=== PATIENT | male | born 1940 | race Caucasian/White ===

== ENCOUNTER 2019-05-22 21:09 | Observation (INO) ==
[2019-05-22 21:40] LABS: Hematocrit 40.3 % (37.5-50.1); Hemoglobin 13.7 g/dL (12.9-16.9); Mean Corpuscular Hemoglobin 33.7 pg (28.0-33.3); Mean Platelet Volume 10.7 fL (9.4-12.4); Platelet Count 138 K/mcL (140-400); Red Blood Count 4.07 M/mcL (4.19-5.50); Red Cell Distribution Width 15.9 % (11.5-14.5); White Blood Count 3.7 K/mcL (4.3-11.1)
[2019-05-22 21:49] LABS: Prothrombin Time 11.6 Seconds (9.4-12.1)
[2019-05-22 21:52] LABS: Activated Partial Thrombo Time 31.7 Seconds (26.0-36.0)
[2019-05-22 22:02] LABS: BUN/Creatinine Ratio 13 (6-26); Blood Urea Nitrogen 15 mg/dL (8-23); Calcium 8.8 mg/dL (8.6-10.3); Carbon Dioxide 24 mEq/L (23-29); Chloride 107 mEq/L (98-107); Glucose 87 mg/dL (70-105); Osmolality,Calculated 274 (280-300); Sodium 132 mEq/L (136-145); Troponin I 0.06 ng/mL (< 0.04); eGFR For African Americans > 60 (> 60); eGFR For Non-African Americans > 60 (> 60)
[2019-05-22] MEDS ORDERED: Aspirin 325 MG TABLET PO ONE (22:09)
[2019-05-22 22:11] LABS: Bilirubin,Urine Negative (Negative); Blood,Urine Negative (Negative); Clarity,Urine Clear (Clear); Color,Urine Yellow (Yellow); Glucose,Urine (UA) Normal (Normal); Ketones,Urine Negative (Negative); Leukocyte Esterase,Urine Negative (Negative); Nitrite,Urine Negative (Negative); PH,Urine 6.5 pH Units (5.0-8.0); Protein,Urine Negative (Neg-Trace); Specific Gravity,Urine 1.009 (1.010-1.025); Urobilinogen,Urine Normal (Normal)
[2019-05-22] MEDS ORDERED: Acetaminophen 325 MG TABLET PO PRN (23:31)
[2019-05-23] MEDS ORDERED: Naloxone 0.4 MG/ML INJ IVP PRN (00:18)
[2019-05-23] MEDS ORDERED: Aspirin Enteric Coated 325 MG Tablet PO ONE (00:24)
[2019-05-23] MEDS: Cabozantinib S-Malate [Cabometyx] 40 MG PO SCH ×2 (00:28→08:34)
[2019-05-23] MEDS: Famotidine 20 MG TABLET PO SCH ×3 (00:29→16:21)
[2019-05-23] MEDS: BuPROPion SR (12 HR) 150 MG TABLET PO SCH ×3 (00:31→21:08)
[2019-05-23 01:18] LABS: Prothrombin Time 11.6 Seconds (9.4-12.1)
[2019-05-23 01:23] LABS: Basophils % 0.5 %; Eosinophils # 0.4 K/mcL (0.0-0.6); Eosinophils % 11.4 %; Hematocrit 39.2 % (37.5-50.1); Hemoglobin 13.4 g/dL (12.9-16.9); Immature Granulocytes % 0.3 % (0-4); Lymphocytes # 1.2 K/mcL (0.6-4.6); Lymphocytes % 31.9 %; Mean Corpuscular HGB Conc 34.2 g/dL (31.6-35.5); Mean Corpuscular Hemoglobin 33.5 pg (28.0-33.3); Mean Platelet Volume 11.3 fL (9.4-12.4); Monocytes # 0.3 K/mcL (0.0-1.3); Monocytes % 7.3 %; Neutrophils # 1.9 K/mcL (1.6-8.9); Platelet Count 148 K/mcL (140-400); Red Cell Distribution Width 15.8 % (11.5-14.5); Segmented Neutrophils % 48.6 %; White Blood Count 3.9 K/mcL (4.3-11.1)
[2019-05-23 01:30] LABS: Alanine Aminotransferase 29 Units/L (7-52); Albumin 3.6 g/dL (3.5-5.7); Albumin/Globulin Ratio 1.7 (1.1-2.2); Alkaline Phosphatase 68 Units/L (34-104); Aspartate Amino Transferase 34 Units/L (13-39); BUN/Creatinine Ratio 14 (6-26); Bilirubin,Total 0.5 mg/dL (0.3-1.0); Blood Urea Nitrogen 14 mg/dL (8-23); Calcium 8.8 mg/dL (8.6-10.3); Carbon Dioxide 22 mEq/L (23-29); Chloride 105 mEq/L (98-107); Chol/HDL Ratio 3.2 (0-4.9); Cholesterol 121 mg/dL (< 200); Globulin 2.1 g/dL (2.4-3.5); Glucose 95 mg/dL (70-105); HDL Cholesterol 38 mg/dL (40-59); LDL Cholesterol,Calculated 66 mg/dL (0-99); Magnesium 1.5 mg/dL (1.6-2.6); Osmolality,Calculated 280 (280-300); Phosphorous 2.5 mg/dL (2.7-4.5); Potassium 3.9 mEq/L (3.5-5.1); Sodium 135 mEq/L (136-145); Total Protein 5.7 g/dL (6.4-8.9); Triglycerides 87 mg/dL (< 150); eGFR For African Americans > 60 (> 60); eGFR For Non-African Americans > 60 (> 60)
[2019-05-23 01:44] LABS: Thyroid Stimulating Hormone 10.609 mcIU/mL (0.340-5.600)
[2019-05-23] MEDS ORDERED: *HR* Heparin 5,000 UNIT/ML VIAL IVP PRN ×2 (03:05)
[2019-05-23] MEDS ORDERED: Heparin 25,000 UNIT/250 ML D5W 25,000 UNIT/250 ML IV.SOLN IVC SCH (03:15)
[2019-05-23] MEDS ORDERED: *HR* Heparin 5,000 UNIT/ML VIAL SQ SCH (06:00)
[2019-05-23 07:58] LABS: Estimated Average Glucose 140 mg/dl
[2019-05-23] MEDS: Magnesium Oxide 400 MG TABLET PO SCH ×2 (08:36→21:08)
[2019-05-23] MEDS ORDERED: NON-FORMULARY MEDICATION 1 EACH EACH (Sildenafil Citrate [Viagra] 50 MG) PO SCH (09:00)
[2019-05-23] MEDS: amLODIPine 5 MG TABLET PO SCH (10:20)
[2019-05-23] MEDS: *HR* Heparin 5,000 UNIT/ML VIAL SQ SCH (16:23)
[2019-05-24 01:12] LABS: Hematocrit 37.1 % (37.5-50.1); Hemoglobin 12.7 g/dL (12.9-16.9); Mean Corpuscular HGB Conc 34.2 g/dL (31.6-35.5); Mean Corpuscular Volume 99.2 fL (83.0-100.0); Mean Platelet Volume 10.6 fL (9.4-12.4); Platelet Count 143 K/mcL (140-400); Red Blood Count 3.74 M/mcL (4.19-5.50); Red Cell Distribution Width 15.9 % (11.5-14.5); White Blood Count 4.6 K/mcL (4.3-11.1)
[2019-05-24 01:31] LABS: BUN/Creatinine Ratio 15 (6-26); Blood Urea Nitrogen 19 mg/dL (8-23); Calcium 8.2 mg/dL (8.6-10.3); Carbon Dioxide 21 mEq/L (23-29); Chloride 103 mEq/L (98-107); Glucose 97 mg/dL (70-105); Osmolality,Calculated 278 (280-300); Potassium 4.1 mEq/L (3.5-5.1); Sodium 133 mEq/L (136-145); eGFR For African Americans > 60 (> 60); eGFR For Non-African Americans 55 (> 60)
[2019-05-24] MEDS: Famotidine 20 MG TABLET PO SCH (05:04)
[2019-05-24] MEDS: *HR* Heparin 5,000 UNIT/ML VIAL SQ SCH (05:29)
[2019-05-24] MEDS ORDERED: Regadenoson 0.4 MG/5 ML SYRINGE IVP ONE (06:18)
[2019-05-24] MEDS ORDERED: Aspirin Enteric Coated 81 MG Tablet PO SCH (09:00)
[2019-05-24] MEDS ORDERED: [UNRECOGNIZED DRUG - OTHER] PO SCH (09:00)
[2019-05-24] MEDS ORDERED: Ascorbic Acid 500 MG TABLET PO SCH (09:00)
[2019-05-24] MEDS ORDERED: B COMPLEX WITH VITAMIN C PO SCH (09:00)
[2019-05-24] MEDS: Cabozantinib S-Malate [Cabometyx] 40 MG PO SCH (09:39)
[2019-05-24] MEDS: Magnesium Oxide 400 MG TABLET PO SCH (09:40)
[2019-05-24] MEDS: BuPROPion SR (12 HR) 150 MG TABLET PO SCH (09:40)
[2019-05-24] MEDS: amLODIPine 5 MG TABLET PO SCH (09:41)
[2019-05-24 15:23] VITALS: BP 143/73
== END 2019-05-24 15:56 | disposition home or self-care (01) ==
LOC: 3BNU 21:09 → EMEROOARM 21:09 → 3BNU 23:35
PROVIDERS: ADMIT Internal Medicine; ATTEND Internal Medicine

== ENCOUNTER 2020-03-06 14:14 | Inpatient (IN) ==
[2020-03-06 15:25] LABS: Basophils # 0.1 K/mcL (0.0-0.2); Basophils % 0.4 %; Hematocrit 38.6 % (37.5-50.1); Hemoglobin 12.3 g/dL (12.9-16.9); Immature Granulocytes % 1.6 % (0-4); Lymphocytes # 0.8 K/mcL (0.6-4.6); Lymphocytes % 6.1 %; Mean Corpuscular HGB Conc 31.9 g/dL (31.6-35.5); Mean Corpuscular Hemoglobin 34.6 pg (28.0-33.3); Mean Corpuscular Volume 108.4 fL (83.0-100.0); Mean Platelet Volume 11.9 fL (9.4-12.4); Monocytes # 2.3 K/mcL (0.0-1.3); Platelet Count 217 K/mcL (140-400); Red Blood Count 3.56 M/mcL (4.19-5.50); Red Cell Distribution Width 15.3 % (11.5-14.5); Segmented Neutrophils % 74.9 %; White Blood Count 13.4 K/mcL (4.3-11.1)
[2020-03-06 15:54] LABS: BUN/Creatinine Ratio 21 (6-26); Blood Urea Nitrogen 29 mg/dL (8-23); Calcium 8.5 mg/dL (8.6-10.3); Carbon Dioxide 23 mEq/L (23-29); Chloride 101 mEq/L (98-107); Glucose 120 mg/dL (70-105); Osmolality,Calculated 281 (280-300); Potassium 4.7 mEq/L (3.5-5.1); Sodium 132 mEq/L (136-145); Troponin I 0.04 ng/mL (< 0.04); eGFR For African Americans > 60 (> 60); eGFR For Non-African Americans 50 (> 60)
[2020-03-06] MEDS ORDERED: 0.9 % Sodium Chloride 500 ML IVC ONE (16:18)
[2020-03-06] MEDS ORDERED: Isovue-370 500 ML BOTTLE IVP ONE (16:19)
[2020-03-06] MEDS ORDERED: Furosemide 40 MG/4 ML VIAL IVP ONE (20:52)
[2020-03-06] MEDS ORDERED: Naloxone 0.4 MG/ML INJ IVP PRN (21:33)
[2020-03-06] MEDS ORDERED: *HR* Enoxaparin 80 MG/0.8 ML SYRINGE SQ ONE (23:34)
[2020-03-06] MEDS ORDERED: *HR* Promethazine 25 MG/ML VIAL IVP PRN (23:38)
[2020-03-07] MEDS: BuPROPion SR (12 HR) 150 MG TABLET PO SCH ×3 (00:06→22:04)
[2020-03-07] MEDS: Acetaminophen 325 MG TABLET PO PRN ×3 (00:10→16:59)
[2020-03-07 00:23] LABS: Bilirubin,Urine Negative (Negative); Blood,Urine Negative (Negative); Clarity,Urine Clear (Clear); Color,Urine Light-Yellow (Yellow); Glucose,Urine (UA) Normal (Normal); Ketones,Urine Negative (Negative); Leukocyte Esterase,Urine Negative (Negative); Nitrite,Urine Negative (Negative); PH,Urine 6.5 pH Units (5.0-8.0); Protein,Urine 30 mg/dL (Neg-Trace); RBC,Urine 0-3 per hpf (0-3); Specific Gravity,Urine 1.018 (1.010-1.025); Urobilinogen,Urine Normal (Normal); WBC,Urine 0-3 per hpf (0-3)
[2020-03-07 00:33] LABS: Adenovirus Not Detected (Not Detect); Bordetella Pertussis Not Detected (Not Detect); Chlamydophila pneumoniae Not Detected (Not Detect); Coronavirus 229E Not Detected (Not Detect); Coronavirus HKU1 Not Detected (Not Detect); Coronavirus NL63 Not Detected (Not Detect); Coronavirus OC43 Not Detected (Not Detect); Human Metapneumovirus Not Detected (Not Detect); Human Rhinovirus/Enterovirus Not Detected (Not Detect); Influenza A Subtype 2009 H1 Not Detected (Not Detect); Influenza B Not Detected (Not Detect); Mycoplasma pneumoniae Not Detected (Not Detect); Parainfluenza Virus 1 Not Detected (Not Detect); Parainfluenza Virus 2 Not Detected (Not Detect); Parainfluenza Virus 3 Not Detected (Not Detect); Parainfluenza Virus 4 Not Detected (Not Detect); Respiratory Syncytial Virus Not Detected (Not Detect)
[2020-03-07 00:35] LABS: SARS-CoV-2 Not Detected (Not Detect)
[2020-03-07 02:34] LABS: VBG HCO3 22 mEq/L (21-27); VBG PCO2 28 mmHg (41-51); VBG PO2 150 mmHg (25-50)
[2020-03-07 02:53] LABS: Alanine Aminotransferase 37 Units/L (7-52); Albumin 2.8 g/dL (3.5-5.7); Albumin/Globulin Ratio 1.2 (1.1-2.2); Alkaline Phosphatase 201 Units/L (34-104); Aspartate Amino Transferase 116 Units/L (13-39); BUN/Creatinine Ratio 21 (6-26); Bilirubin,Total 1.1 mg/dL (0.3-1.0); Blood Urea Nitrogen 28 mg/dL (8-23); Calcium 7.9 mg/dL (8.6-10.3); Carbon Dioxide 21 mEq/L (23-29); Chloride 102 mEq/L (98-107); Globulin 2.3 g/dL (2.4-3.5); Glucose 120 mg/dL (70-105); Magnesium 1.7 mg/dL (1.6-2.6); Osmolality,Calculated 281 (280-300); Phosphorous 3.4 mg/dL (2.7-4.5); Potassium 4.1 mEq/L (3.5-5.1); Sodium 132 mEq/L (136-145); Total Protein 5.1 g/dL (6.4-8.9); eGFR For African Americans > 60 (> 60); eGFR For Non-African Americans 51 (> 60)
[2020-03-07] MEDS: carvediloL 6.25 MG TABLET PO SCH ×2 (08:12→16:58)
[2020-03-07] MEDS: Aspirin 81 MG TAB.CHEW PO SCH (08:12)
[2020-03-07] MEDS: Insulin LISPRO 300 UNITS/3 ML VIAL SQ SCH ×3 (08:13→16:35)
[2020-03-07 08:55] LABS: Estimated Average Glucose 114 mg/dl; Hemoglobin A1C 5.6 %
[2020-03-07] MEDS ORDERED: Furosemide 20 MG TABLET PO SCH (09:00)
[2020-03-07] MEDS ORDERED: Furosemide 40 MG/4 ML VIAL IVP SCH (09:00)
[2020-03-08] MEDS: *HR* OxyCODONE Immed Rel 5 MG TABLET PO PRN ×2 (00:53→08:27)
[2020-03-08 01:57] LABS: Basophils % 0.4 %; Eosinophils % 0.1 %; Hematocrit 32.3 % (37.5-50.1); Immature Granulocytes % 1.4 % (0-4); Lymphocytes # 0.9 K/mcL (0.6-4.6); Lymphocytes % 8.9 %; Mean Corpuscular HGB Conc 32.5 g/dL (31.6-35.5); Mean Corpuscular Hemoglobin 34.4 pg (28.0-33.3); Mean Corpuscular Volume 105.9 fL (83.0-100.0); Mean Platelet Volume 11.5 fL (9.4-12.4); Monocytes # 1.5 K/mcL (0.0-1.3); Monocytes % 15.2 %; Neutrophils # 7.3 K/mcL (1.6-8.9); Platelet Count 189 K/mcL (140-400); Red Blood Count 3.05 M/mcL (4.19-5.50); Red Cell Distribution Width 15.2 % (11.5-14.5); White Blood Count 9.9 K/mcL (4.3-11.1)
[2020-03-08 02:00] LABS: Hemoglobin 10.5 g/dL (12.9-16.9)
[2020-03-08 02:14] LABS: Albumin 2.9 g/dL (3.5-5.7); Albumin/Globulin Ratio 1.3 (1.1-2.2); Bilirubin,Total 0.9 mg/dL (0.3-1.0); Calcium 8.1 mg/dL (8.6-10.3); Globulin 2.3 g/dL (2.4-3.5); Potassium 4.2 mEq/L (3.5-5.1); Total Protein 5.2 g/dL (6.4-8.9)
[2020-03-08] MEDS: Insulin LISPRO 300 UNITS/3 ML VIAL SQ SCH ×2 (08:22→12:24)
[2020-03-08] MEDS: Furosemide 20 MG TABLET PO SCH (08:25)
[2020-03-08] MEDS: BuPROPion SR (12 HR) 150 MG TABLET PO SCH ×2 (08:25→20:52)
[2020-03-08] MEDS: carvediloL 6.25 MG TABLET PO SCH ×2 (08:25→17:20)
[2020-03-08] MEDS: Aspirin 81 MG TAB.CHEW PO SCH (08:25)
[2020-03-08] MEDS: *HR* Heparin 5,000 UNIT/ML VIAL SQ SCH ×2 (12:16→17:20)
[2020-03-09] MEDS: *HR* OxyCODONE Immed Rel 5 MG TABLET PO PRN (02:56)
[2020-03-09] MEDS: *HR* Heparin 5,000 UNIT/ML VIAL SQ SCH ×2 (05:48→17:26)
[2020-03-09 08:10] LABS: Calcium 7.7 mg/dL (8.6-10.3); Potassium 4.4 mEq/L (3.5-5.1)
[2020-03-09] MEDS: Furosemide 20 MG TABLET PO SCH (08:28)
[2020-03-09] MEDS: Aspirin 81 MG TAB.CHEW PO SCH (08:28)
[2020-03-09] MEDS: BuPROPion SR (12 HR) 150 MG TABLET PO SCH ×2 (08:28→19:28)
[2020-03-09] MEDS: carvediloL 6.25 MG TABLET PO SCH ×2 (08:29→17:25)
[2020-03-09] MEDS ORDERED: Triamcinolone Acet 0.1% CRM 15 GM TUBE TP PRN (12:20)
[2020-03-09] MEDS ORDERED: Loratadine 10 MG TABLET PO PRN (12:20)
[2020-03-09] MEDS: Acetaminophen 325 MG TABLET PO PRN (19:28)
[2020-03-10 02:06] LABS: Calcium 7.9 mg/dL (8.6-10.3); Potassium 4.3 mEq/L (3.5-5.1)
[2020-03-10] MEDS: *HR* Heparin 5,000 UNIT/ML VIAL SQ SCH ×2 (05:44→17:25)
[2020-03-10] MEDS: Acetaminophen 325 MG TABLET PO PRN (05:46)
[2020-03-10] MEDS: carvediloL 6.25 MG TABLET PO SCH ×2 (07:52→17:25)
[2020-03-10] MEDS: Famotidine 20 MG TABLET PO SCH (07:52)
[2020-03-10] MEDS: BuPROPion SR (12 HR) 150 MG TABLET PO SCH ×2 (07:52→21:44)
[2020-03-10] MEDS: Cholecalciferol (D-3) 1,000 UNIT (25MCG) TABLET PO SCH (07:52)
[2020-03-10] MEDS: Aspirin 81 MG TAB.CHEW PO SCH (07:52)
[2020-03-10] MEDS: Furosemide 20 MG TABLET PO SCH (07:52)
[2020-03-11] MEDS: *HR* Heparin 5,000 UNIT/ML VIAL SQ SCH (05:28)
[2020-03-11] MEDS: Famotidine 20 MG TABLET PO SCH (08:57)
[2020-03-11] MEDS: Aspirin 81 MG TAB.CHEW PO SCH (08:57)
[2020-03-11] MEDS: Furosemide 20 MG TABLET PO SCH (08:57)
[2020-03-11] MEDS: carvediloL 6.25 MG TABLET PO SCH (08:57)
[2020-03-11] MEDS: Cholecalciferol (D-3) 1,000 UNIT (25MCG) TABLET PO SCH (08:57)
[2020-03-11] MEDS: BuPROPion SR (12 HR) 150 MG TABLET PO SCH (08:57)
[2020-03-11 11:52] VITALS: BP 117/61
[2020-03-12] MEDS ORDERED: Famotidine 20 MG TABLET PO SCH (09:00)
== END 2020-03-11 17:57 | DRG 280 ==
LOC: EMEROOARM 14:14 → 3ANU 14:14 → SUATTDRO 21:07 → 3ANU 21:55
PROVIDERS: ADMIT Internal Medicine; ATTEND Internal Medicine

== ENCOUNTER 2020-05-01 23:40 | Inpatient (IN) ==
[2020-05-02 00:19] LABS: Basophils # 0.1 K/mcL (0.0-0.2); Basophils % 0.9 %; Eosinophils # 0.1 K/mcL (0.0-0.6); Eosinophils % 0.6 %; Hematocrit 44.7 % (37.5-50.1); Hemoglobin 13.6 g/dL (12.9-16.9); Immature Granulocytes % 2.1 % (0-4); Lymphocytes % 11.8 %; Mean Corpuscular HGB Conc 30.4 g/dL (31.6-35.5); Mean Corpuscular Hemoglobin 30.5 pg (28.0-33.3); Mean Corpuscular Volume 100.2 fL (83.0-100.0); Mean Platelet Volume 11.4 fL (9.4-12.4); Monocytes # 0.9 K/mcL (0.0-1.3); Monocytes % 10.6 %; Platelet Count 270 K/mcL (140-400); Red Blood Count 4.46 M/mcL (4.19-5.50); Red Cell Distribution Width 15.9 % (11.5-14.5); White Blood Count 8.1 K/mcL (4.3-11.1)
[2020-05-02 00:27] LABS: INR 1.1; Prothrombin Time 12.5 Seconds (9.4-12.1)
[2020-05-02 00:29] LABS: VBG HCO3 24 mEq/L (21-27); VBG PCO2 41 mmHg (41-51); VBG PH 7.36 pH Units (7.32-7.42); VBG PO2 39 mmHg (25-50)
[2020-05-02 00:30] LABS: Activated Partial Thrombo Time 33.7 Seconds (26.0-36.0)
[2020-05-02 00:57] LABS: Albumin 2.9 g/dL (3.5-5.7); Albumin/Globulin Ratio 1.2 (1.1-2.2); Bilirubin,Direct 0.3 mg/dL (0.0-0.2); Bilirubin,Indirect 0.6 mg/dL (0.0-1.0); Bilirubin,Total 0.9 mg/dL (0.3-1.0); Calcium 7.9 mg/dL (8.6-10.3); Globulin 2.4 g/dL (2.4-3.5); Magnesium 1.9 mg/dL (1.6-2.6); Phosphorous 3.9 mg/dL (2.7-4.5); Potassium 4.5 mEq/L (3.5-5.1); Total Protein 5.3 g/dL (6.4-8.9); Troponin I 0.03 ng/mL (< 0.04)
[2020-05-02 01:28] LABS: Adenovirus Not Detected (Not Detect); Coronavirus 229E Not Detected (Not Detect); Coronavirus HKU1 Not Detected (Not Detect); Coronavirus NL63 Not Detected (Not Detect); Coronavirus OC43 Not Detected (Not Detect)
[2020-05-02 01:29] LABS: Bilirubin,Urine Negative (Negative); Blood,Urine Trace (Negative); Clarity,Urine Turbid (Clear); Color,Urine Yellow (Yellow); Glucose,Urine (UA) Normal (Normal); Granular Casts,Urine Few per lpf (None Seen); Hyaline Casts,Urine Few per lpf (None Seen); Ketones,Urine Negative (Negative); Leukocyte Esterase,Urine Negative (Negative); Mucus,Urine Few per lpf (None-Few); Nitrite,Urine Negative (Negative); Protein,Urine 200 mg/dL (Neg-Trace); RBC,Urine 0-3 per hpf (0-3); Specific Gravity,Urine 1.019 (1.010-1.025); Urobilinogen,Urine Normal (Normal)
[2020-05-02 01:30] LABS: Human Metapneumovirus Not Detected (Not Detect); SARS-CoV-2 DETECTED (Not Detect)
[2020-05-02 01:31] LABS: Bordetella Pertussis Not Detected (Not Detect); Chlamydophila pneumoniae Not Detected (Not Detect); Human Rhinovirus/Enterovirus Not Detected (Not Detect); Influenza A Subtype 2009 H1 Not Detected (Not Detect); Influenza B Not Detected (Not Detect); Mycoplasma pneumoniae Not Detected (Not Detect); Parainfluenza Virus 1 Not Detected (Not Detect); Parainfluenza Virus 2 Not Detected (Not Detect); Parainfluenza Virus 3 Not Detected (Not Detect); Parainfluenza Virus 4 Not Detected (Not Detect); Respiratory Syncytial Virus Not Detected (Not Detect)
[2020-05-02] MEDS ORDERED: Vancomycin 1,750 MG/517.5 ML IV.SOLN IVPB ONE (01:39)
[2020-05-02] MEDS ORDERED: Azithromycin 500 MG in 0.9 % Sodium Chloride 250 ML IVPB ONE (01:39)
[2020-05-02] MEDS ORDERED: Piperacillin/Tazobactam 3.375 GM in 0.9 % Sodium Chloride Mini Bag 100 ML IVPB ONE (01:40)
[2020-05-02] MEDS ORDERED: Ondansetron 4 MG/2 ML VIAL IVP PRN (02:44)
[2020-05-02] MEDS ORDERED: Naloxone 0.4 MG/ML INJ IVP PRN (02:44)
[2020-05-02 06:03] LABS: Hematocrit 39.1 % (37.5-50.1); Hemoglobin 11.9 g/dL (12.9-16.9); Mean Corpuscular HGB Conc 30.4 g/dL (31.6-35.5); Mean Corpuscular Hemoglobin 30.4 pg (28.0-33.3); Mean Platelet Volume 11.3 fL (9.4-12.4); Platelet Count 215 K/mcL (140-400); Red Blood Count 3.91 M/mcL (4.19-5.50); Red Cell Distribution Width 16.1 % (11.5-14.5); White Blood Count 7.6 K/mcL (4.3-11.1)
[2020-05-02 06:15] LABS: Albumin 2.4 g/dL (3.5-5.7); Albumin/Globulin Ratio 1.1 (1.1-2.2); Bilirubin,Total 0.9 mg/dL (0.3-1.0); Calcium 7.4 mg/dL (8.6-10.3); Globulin 2.1 g/dL (2.4-3.5); Potassium 4.2 mEq/L (3.5-5.1); Total Protein 4.5 g/dL (6.4-8.9)
[2020-05-02] MEDS: *HR* Heparin 5,000 UNIT/ML VIAL SQ SCH ×3 (06:36→20:53)
[2020-05-02] MEDS: Albumin 25% 25gram/100mL 25 GM/100 ML IV.SOLN IVPB SCH ×2 (09:29→17:22)
[2020-05-02] MEDS: Dexamethasone 4 MG/ML VIAL IVP SCH (09:30)
[2020-05-02 09:59] LABS: C-Reactive Protein 81 mg/L (Less than 10); Ferritin 668 ng/mL (20-250); Lactate Dehydrogenase 1468 Units/L (140-271)
[2020-05-02] MEDS ORDERED: Loratadine 10 MG TABLET PO PRN (10:05)
[2020-05-02] MEDS: Piperacillin/Tazobactam 3.375 GM in 0.9 % Sodium Chloride Mini Bag 100 ML IVPB SCH ×2 (11:44→19:36)
[2020-05-02] MEDS: Furosemide 40 MG/4 ML VIAL IVP SCH ×2 (11:44→20:14)
[2020-05-02] MEDS: carvediloL 6.25 MG TABLET PO SCH (17:22)
[2020-05-02] MEDS: BuPROPion SR (12 HR) 150 MG TABLET PO SCH (20:14)
[2020-05-03] MEDS: Albumin 25% 25gram/100mL 25 GM/100 ML IV.SOLN IVPB SCH ×2 (00:08→19:53)
[2020-05-03] MEDS: Piperacillin/Tazobactam 3.375 GM in 0.9 % Sodium Chloride Mini Bag 100 ML IVPB SCH ×3 (03:13→21:23)
[2020-05-03] MEDS ORDERED: Vancomycin 1,250 MG/262.5 ML IV.SOLN IVPB SCH (03:30)
[2020-05-03] MEDS: *HR* Heparin 5,000 UNIT/ML VIAL SQ SCH ×3 (05:04→21:09)
[2020-05-03 06:05] LABS: Basophils # 0.1 K/mcL (0.0-0.2); Basophils % 0.7 %; Eosinophils % 0.3 %; Hematocrit 35.7 % (37.5-50.1); Hemoglobin 10.9 g/dL (12.9-16.9); Immature Granulocytes % 1.8 % (0-4); Lymphocytes # 0.8 K/mcL (0.6-4.6); Lymphocytes % 8.4 %; Mean Corpuscular HGB Conc 30.5 g/dL (31.6-35.5); Mean Corpuscular Hemoglobin 31.1 pg (28.0-33.3); Mean Corpuscular Volume 101.7 fL (83.0-100.0); Mean Platelet Volume 11.2 fL (9.4-12.4); Monocytes # 0.8 K/mcL (0.0-1.3); Monocytes % 8.4 %; Neutrophils # 7.2 K/mcL (1.6-8.9); Platelet Count 180 K/mcL (140-400); Red Blood Count 3.51 M/mcL (4.19-5.50); Red Cell Distribution Width 16.2 % (11.5-14.5); Segmented Neutrophils % 80.4 %
[2020-05-03] MEDS: BuPROPion SR (12 HR) 150 MG TABLET PO SCH ×2 (08:36→21:09)
[2020-05-03] MEDS: Aspirin 81 MG TAB.CHEW PO SCH (08:37)
[2020-05-03] MEDS: carvediloL 6.25 MG TABLET PO SCH ×2 (08:37→17:22)
[2020-05-03] MEDS: Famotidine 20 MG TABLET PO SCH (08:37)
[2020-05-03] MEDS: Dexamethasone 4 MG/ML VIAL IVP SCH (08:38)
[2020-05-03] MEDS: Cholecalciferol (D-3) 1,000 UNIT (25MCG) TABLET PO SCH (08:38)
[2020-05-03] MEDS: Furosemide 40 MG/4 ML VIAL IVP SCH ×2 (08:39→21:09)
[2020-05-03] MEDS ORDERED: Famotidine 20 MG TABLET PO SCH (09:00)
[2020-05-03 09:42] LABS: Albumin/Globulin Ratio 1.9 (1.1-2.2); Bilirubin,Total 0.9 mg/dL (0.3-1.0); Calcium 7.4 mg/dL (8.6-10.3); Globulin 1.6 g/dL (2.4-3.5); Potassium 3.7 mEq/L (3.5-5.1); Total Protein 4.6 g/dL (6.4-8.9)
[2020-05-04] MEDS: Piperacillin/Tazobactam 3.375 GM in 0.9 % Sodium Chloride Mini Bag 100 ML IVPB SCH ×3 (04:04→21:35)
[2020-05-04] MEDS: *HR* Heparin 5,000 UNIT/ML VIAL SQ SCH ×3 (05:42→21:36)
[2020-05-04] MEDS: carvediloL 6.25 MG TABLET PO SCH ×2 (09:08→17:18)
[2020-05-04] MEDS: Famotidine 20 MG TABLET PO SCH (09:08)
[2020-05-04] MEDS: BuPROPion SR (12 HR) 150 MG TABLET PO SCH ×2 (09:09→21:36)
[2020-05-04] MEDS: Aspirin 81 MG TAB.CHEW PO SCH (09:09)
[2020-05-04] MEDS: Cholecalciferol (D-3) 1,000 UNIT (25MCG) TABLET PO SCH (09:09)
[2020-05-04] MEDS: Dexamethasone 4 MG/ML VIAL IVP SCH (09:10)
[2020-05-04] MEDS: Albumin 25% 25gram/100mL 25 GM/100 ML IV.SOLN IVPB SCH ×2 (09:15→21:34)
[2020-05-04] MEDS: Furosemide 40 MG/4 ML VIAL IVP SCH ×2 (11:30→21:34)
[2020-05-04 12:49] LABS: Basophils % 0.4 %; Hematocrit 35.4 % (37.5-50.1); Immature Granulocytes % 1.8 % (0-4); Lymphocytes # 0.5 K/mcL (0.6-4.6); Lymphocytes % 5.9 %; Mean Corpuscular HGB Conc 31.1 g/dL (31.6-35.5); Mean Corpuscular Hemoglobin 31.1 pg (28.0-33.3); Mean Platelet Volume 11.7 fL (9.4-12.4); Monocytes # 0.7 K/mcL (0.0-1.3); Monocytes % 8.8 %; Neutrophils # 6.8 K/mcL (1.6-8.9); Platelet Count 184 K/mcL (140-400); Red Blood Count 3.54 M/mcL (4.19-5.50); Red Cell Distribution Width 15.9 % (11.5-14.5); Segmented Neutrophils % 83.1 %; White Blood Count 8.2 K/mcL (4.3-11.1)
[2020-05-04 13:09] LABS: Albumin 3.1 g/dL (3.5-5.7); Albumin/Globulin Ratio 2.1 (1.1-2.2); Bilirubin,Total 0.8 mg/dL (0.3-1.0); Calcium 7.7 mg/dL (8.6-10.3); Globulin 1.5 g/dL (2.4-3.5); Potassium 3.5 mEq/L (3.5-5.1); Total Protein 4.6 g/dL (6.4-8.9)
[2020-05-04] MEDS: Morphine Sulfate Oral CONC 10 MG/0.5 ML ORAL.SYG SL PRN (14:29)
[2020-05-05 05:15] LABS: Basophils % 0.4 %; Eosinophils % 0.2 %; Hematocrit 38.1 % (37.5-50.1); Hemoglobin 11.6 g/dL (12.9-16.9); Immature Granulocytes % 1.1 % (0-4); Lymphocytes # 0.7 K/mcL (0.6-4.6); Lymphocytes % 7.2 %; Mean Corpuscular HGB Conc 30.4 g/dL (31.6-35.5); Mean Corpuscular Hemoglobin 31.4 pg (28.0-33.3); Mean Platelet Volume 11.7 fL (9.4-12.4); Monocytes # 0.8 K/mcL (0.0-1.3); Monocytes % 8.4 %; Neutrophils # 7.7 K/mcL (1.6-8.9); Platelet Count 185 K/mcL (140-400); Red Cell Distribution Width 16.3 % (11.5-14.5); Segmented Neutrophils % 82.7 %; White Blood Count 9.3 K/mcL (4.3-11.1)
[2020-05-05 05:34] LABS: Albumin 3.3 g/dL (3.5-5.7); Albumin/Globulin Ratio 2.1 (1.1-2.2); Bilirubin,Total 0.8 mg/dL (0.3-1.0); Calcium 7.8 mg/dL (8.6-10.3); Globulin 1.6 g/dL (2.4-3.5); Potassium 3.5 mEq/L (3.5-5.1); Total Protein 4.9 g/dL (6.4-8.9)
[2020-05-05] MEDS: *HR* Heparin 5,000 UNIT/ML VIAL SQ SCH ×3 (05:40→19:50)
[2020-05-05] MEDS: BuPROPion SR (12 HR) 150 MG TABLET PO SCH ×2 (08:14→19:50)
[2020-05-05] MEDS: Cholecalciferol (D-3) 1,000 UNIT (25MCG) TABLET PO SCH (08:15)
[2020-05-05] MEDS: Famotidine 20 MG TABLET PO SCH (08:15)
[2020-05-05] MEDS: Aspirin 81 MG TAB.CHEW PO SCH (08:16)
[2020-05-05] MEDS: carvediloL 6.25 MG TABLET PO SCH ×2 (08:16→16:13)
[2020-05-05] MEDS: Piperacillin/Tazobactam 3.375 GM in 0.9 % Sodium Chloride Mini Bag 100 ML IVPB SCH ×3 (08:16→23:30)
[2020-05-05] MEDS: Furosemide 40 MG/4 ML VIAL IVP SCH ×3 (08:18→19:50)
[2020-05-05] MEDS: Dexamethasone 4 MG/ML VIAL IVP SCH (08:19)
[2020-05-05] MEDS: Albumin 25% 25gram/100mL 25 GM/100 ML IV.SOLN IVPB SCH ×2 (08:43→19:48)
[2020-05-05] MEDS: Morphine Sulfate Oral CONC 10 MG/0.5 ML ORAL.SYG SL PRN ×2 (13:07→16:44)
[2020-05-06] MEDS: *HR* Heparin 5,000 UNIT/ML VIAL SQ SCH ×3 (03:34→20:45)
[2020-05-06 04:53] LABS: Basophils % 0.4 %; Hematocrit 39.4 % (37.5-50.1); Hemoglobin 11.5 g/dL (12.9-16.9); Immature Granulocytes % 1.3 % (0-4); Lymphocytes # 0.6 K/mcL (0.6-4.6); Lymphocytes % 7.6 %; Mean Corpuscular HGB Conc 29.2 g/dL (31.6-35.5); Mean Corpuscular Hemoglobin 30.8 pg (28.0-33.3); Mean Corpuscular Volume 105.6 fL (83.0-100.0); Mean Platelet Volume 11.9 fL (9.4-12.4); Monocytes # 0.6 K/mcL (0.0-1.3); Monocytes % 7.3 %; Neutrophils # 6.9 K/mcL (1.6-8.9); Nucleated Red Blood Cells 0.2 /100 WBC (0); Platelet Count 188 K/mcL (140-400); Red Blood Count 3.73 M/mcL (4.19-5.50); Red Cell Distribution Width 16.4 % (11.5-14.5); Segmented Neutrophils % 83.4 %; White Blood Count 8.3 K/mcL (4.3-11.1)
[2020-05-06 05:11] LABS: Calcium 7.8 mg/dL (8.6-10.3); Potassium 3.5 mEq/L (3.5-5.1)
[2020-05-06] MEDS: Famotidine 20 MG TABLET PO SCH (07:40)
[2020-05-06] MEDS: Cholecalciferol (D-3) 1,000 UNIT (25MCG) TABLET PO SCH (07:42)
[2020-05-06] MEDS: Aspirin 81 MG TAB.CHEW PO SCH (07:43)
[2020-05-06] MEDS: BuPROPion SR (12 HR) 150 MG TABLET PO SCH ×2 (07:43→20:46)
[2020-05-06] MEDS: carvediloL 6.25 MG TABLET PO SCH ×2 (07:43→15:58)
[2020-05-06] MEDS: Dexamethasone 4 MG/ML VIAL IVP SCH (07:44)
[2020-05-06] MEDS: Furosemide 40 MG/4 ML VIAL IVP SCH ×2 (07:46→20:45)
[2020-05-06] MEDS: Piperacillin/Tazobactam 3.375 GM in 0.9 % Sodium Chloride Mini Bag 100 ML IVPB SCH ×3 (07:47→23:57)
[2020-05-06] MEDS: Albumin 25% 25gram/100mL 25 GM/100 ML IV.SOLN IVPB SCH ×2 (07:51→19:47)
[2020-05-06] MEDS: Morphine Sulfate Oral CONC 10 MG/0.5 ML ORAL.SYG SL PRN (11:46)
[2020-05-07] MEDS: *HR* Heparin 5,000 UNIT/ML VIAL SQ SCH ×2 (05:11→13:58)
[2020-05-07] MEDS: BuPROPion SR (12 HR) 150 MG TABLET PO SCH (07:48)
[2020-05-07] MEDS: Aspirin 81 MG TAB.CHEW PO SCH (07:48)
[2020-05-07] MEDS: Furosemide 40 MG/4 ML VIAL IVP SCH (07:49)
[2020-05-07] MEDS: Cholecalciferol (D-3) 1,000 UNIT (25MCG) TABLET PO SCH (07:49)
[2020-05-07] MEDS: carvediloL 6.25 MG TABLET PO SCH (07:49)
[2020-05-07] MEDS: Dexamethasone 4 MG/ML VIAL IVP SCH (07:49)
[2020-05-07] MEDS: Piperacillin/Tazobactam 3.375 GM in 0.9 % Sodium Chloride Mini Bag 100 ML IVPB SCH (07:50)
[2020-05-07] MEDS: Albumin 25% 25gram/100mL 25 GM/100 ML IV.SOLN IVPB SCH (07:50)
[2020-05-07] MEDS: Morphine Sulfate Oral CONC 10 MG/0.5 ML ORAL.SYG SL PRN (08:08)
[2020-05-07 09:43] LABS: Hematocrit 37.8 % (37.5-50.1); Hemoglobin 11.2 g/dL (12.9-16.9); Mean Corpuscular HGB Conc 29.6 g/dL (31.6-35.5); Mean Corpuscular Hemoglobin 31.6 pg (28.0-33.3); Mean Corpuscular Volume 106.8 fL (83.0-100.0); Mean Platelet Volume 11.4 fL (9.4-12.4); Nucleated Red Blood Cells 0.5 /100 WBC (0); Platelet Count 193 K/mcL (140-400); Red Blood Count 3.54 M/mcL (4.19-5.50); White Blood Count 11.3 K/mcL (4.3-11.1)
[2020-05-07 10:04] LABS: Albumin 3.6 g/dL (3.5-5.7); Albumin/Globulin Ratio 2.3 (1.1-2.2); Bilirubin,Total 0.8 mg/dL (0.3-1.0); Calcium 8.1 mg/dL (8.6-10.3); Globulin 1.6 g/dL (2.4-3.5); Potassium 3.4 mEq/L (3.5-5.1); Total Protein 5.2 g/dL (6.4-8.9)
[2020-05-07 10:10] LABS: Lymphocytes # 0.7 K/mcL (0.6-4.6); Monocytes # 0.5 K/mcL (0.0-1.3); Neutrophils # 10.2 K/mcL (1.6-8.9); Platelet Estimate Slight Decrease (Normal); Polychromasia 1+ (Not Present)
[2020-05-07 12:09] VITALS: BP 133/74
[2020-05-07] MEDS: Potassium Chloride Elixir 20 MEQ/15 ML UDC PO ONE ×2 (13:58→14:10)
[2020-05-08] MEDS ORDERED: Famotidine 20 MG TABLET PO SCH (09:00)
== END 2020-05-07 18:30 | disposition expired | DRG 177 ==
LOC: EMEROOARM 23:40 → 2NENU 23:40 → SUATTDRO 05-02 01:51 → 2NENU 05-02 02:24
PROVIDERS: ADMIT Internal Medicine; ATTEND Internal Medicine